=== PATIENT | male | born 1940 ===

== ENCOUNTER 2021-03-05 10:17 | Inpatient (IN) | payer MEDICARE ==
[2021-03-05 10:50] LABS: #Lymphocytes 0.6 thou/uL (1.20-3.40); #Monocytes 1.3 thou/uL (0.11-0.59); #Neutrophils 16.7 thou/uL (1.40-6.50); %Eosinophils 0.1 % (0.0-10.0); %Lymphocytes 3.2 % (21.0-51.0); %Monocytes 6.7 % (0.0-10.0); %Neutrophils 89.9 % (42.0-75.0); Hemoglobin 11.5 g/dL (14.0-18.0); Mean Corpuscular Hemoglobin 28.1 pg (27.0-31.0); Mean Corpuscular Volume 85.3 fL (78.0-98.0); Mean Platelet Volume 7.9 fL (7.4-10.4); Platelet Count 196 thou/uL (130-400); RBC Distribution Width 14.7 % (11.5-14.5); Red Blood Cell (RBC) Count 4.08 mill/uL (4.70-6.10); White Blood Cell (WBC) Count 18.6 thou/uL (4.8-10.8)
[2021-03-05 10:59] LABS: INR-International Normal Ratio 1.4; Prothrombin Time 17.2 sec (12.0-14.7)
[2021-03-05 11:00] LABS: PTT 42.3 sec (22.9-36.1)
[2021-03-05] MEDS ORDERED: Cefepime 2 GM VIAL ONE (11:05)
[2021-03-05 11:06] LABS: Bilirubin Negative (Negative); Blood, Urine Large (Negative); Glucose, Urine (Dipstick) Negative (Negative); Ketone, Urine Negative (Negative); Leukocyte Trace (Negative); Nitrite Positive (Negative); Protein, Urine (Dipstick) 100 mg/dL (Neg-Trace); Specific Gravity, Urine 1.025 (1.005-1.030); Urobilinogen 0.2 mg/dL (Less than 2); pH, Urine 6.5 (5.0-9.0)
[2021-03-05 11:08] LABS: ALT (SGPT) 33 U/L (8-55); AST (SGOT) 74 U/L (5-34); Alkaline Phosphatase 82 U/L (40-110); Anion Gap 20 mmol/L (10-20); BUN (Urea Nitrogen) 63 mg/dL (8.4-25.7); Bilirubin, Total 0.7 mg/dL (0.2-1.2); CK (CPK) 1956 U/L (30-200); Calc. Creatinine Clearance 0 mL/min (70-130); Carbon Dioxide 16 mmol/L (23-31); Chloride 109 mmol/L (98-107); Glucose 116 mg/dL (83-110); Lipase 7 U/L (8-78); Potassium 4.5 mmol/L (3.5-5.1); Sodium 140 mmol/L (136-145)
[2021-03-05 11:12] LABS: Clarity Cloudy (Clear)
[2021-03-05 11:20] LABS: Bacteria/HPF 1+ HPF (None Seen); Squamous Epithelial 0-3 HPF (0-3)
[2021-03-05 11:30] LABS: CKMB 37.1 ng/mL (0-6.6)
[2021-03-05] MEDS ORDERED: Sodium Chloride 0.9% 1,000 ML IV SCH (11:30)
[2021-03-05 12:00] LABS: SARS-CoV-2 NAA Rapid Test Not Detected (NotDetected)
[2021-03-05] MEDS ORDERED: Vancomycin 1.5 GRAM/300 ML BAG 1.5 GM in Premix Bag 1 BAG IVPB SCH (12:00)
[2021-03-05] MEDS ORDERED: Ondansetron ODT 4 MG TAB PO PRN (12:44)
[2021-03-05] MEDS ORDERED: Calcium Carbonate 500 MG ChewTAB PO PRN (12:44)
[2021-03-05] MEDS ORDERED: Acetaminophen 650 MG Suppository PR PRN (12:44)
[2021-03-05] MEDS ORDERED: Ondansetron PF 4 MG/2 ML Vial IVP PRN (12:44)
[2021-03-05] MEDS ORDERED: Aspirin 300 MG Suppository ONE (13:00)
[2021-03-05] MEDS ORDERED: Cefepime 1 GM in Sodium Chloride 0.9% 100 ML IVPB SCH (13:00)
[2021-03-05] MEDS ORDERED: Vancomycin 1 GM in Premix Bag 1 BAG IVPB SCH (13:00)
[2021-03-05] MEDS ORDERED: Sodium Bicarbonate 50 MEQ in Dextrose 5 %-0.45 % NaCl 1,000 ML IV SCH (13:00)
[2021-03-05 13:06] LABS: Magnesium 2.8 mg/dL (1.6-2.6); Phosphorus 5.7 mg/dL (2.3-4.7)
[2021-03-05 13:54] LABS: Actual Bicarbonate (HCO3a) 13.3 mEq/L (22-28); Analyzer IN Cardio ER; Base Excess (BEa) -10.5 mEq/L (-2.0 to +3.0); Calcium, Ionized (arterial) 1.08 mmol/L (1.12-1.30); Carboxyhemoglobin (COHb) 0.3 gm% (0.0-3.0); Hemoglobin (Hb) 9.8 g/dL (14.0-18.0); Potassium - ABG Lab 4.04 mmol/L (3.70-5.30); pH, Arterial 7.37 (7.35-7.45)
[2021-03-05 13:55] LABS: Troponin I 0.196 ng/mL (< 0.028)
[2021-03-05 13:56] LABS: CO2 Tension 23.7 mmHg (35.0-45.0)
[2021-03-05 13:57] LABS: ALV-art Gradient 69.015 mmHg (0-20); Puncture Site RRA
[2021-03-05] MEDS ORDERED: Hydrocortisone Sod Succ/PF 100 mg/2 ml Vial IVP SCH (15:00)
[2021-03-05] MEDS: Albumin 25% 25 GM/100 ML BOT IVPB SCH ×2 (15:28→20:34)
[2021-03-05] MEDS: MULTIVITAMINS IV SCH (17:59)
[2021-03-05] MEDS: [UNRECOGNIZED DRUG - OTHER] IV SCH (17:59)
[2021-03-05] MEDS: SODIUM BICARBONATE IV SCH (17:59)
[2021-03-05 20:33] LABS: Anion Gap 17 mmol/L (10-20); BUN (Urea Nitrogen) 63 mg/dL (8.4-25.7); Calc. Creatinine Clearance 24 mL/min (70-130); Calcium 8.2 mg/dL (7.8-10.44); Carbon Dioxide 15 mmol/L (23-31); Chloride 111 mmol/L (98-107); Glucose 150 mg/dL (83-110); Sodium 139 mmol/L (136-145)
[2021-03-05] MEDS: Heparin 5,000 UNITS/ML VIAL SC SCH (20:34)
[2021-03-05] MEDS: Folic Acid 1 MG TAB PO SCH (20:35)
[2021-03-05] MEDS: Senokot S 8.6-50 MG TAB PO SCH (20:35)
[2021-03-05] MEDS ORDERED: Famotidine 20 MG TAB PO SCH (21:00)
[2021-03-05] MEDS ORDERED: Famotidine/PF 20 mg/2ml Vial SLOW IVP SCH (21:00)
[2021-03-05] MEDS ORDERED: Enoxaparin Sodium 40 MG/0.4 ML SYRINGE SC SCH (21:00)
[2021-03-05] MEDS ORDERED: Cyanocobalamin 1000 MCG/ML VIAL IM SCH (21:00)
[2021-03-06] MEDS: MULTIVITAMINS IV SCH (00:46)
[2021-03-06] MEDS: [UNRECOGNIZED DRUG - OTHER] IV SCH (00:46)
[2021-03-06] MEDS: SODIUM BICARBONATE IV SCH (00:46)
[2021-03-06] MEDS: Sodium Bicarbonate 50 MEQ in Dextrose 5 %-0.45 % NaCl 1,000 ML IV SCH ×2 (00:51→11:46)
[2021-03-06] MEDS: Albumin 25% 25 GM/100 ML BOT IVPB SCH ×3 (02:10→15:58)
[2021-03-06 04:04] LABS: #Lymphocytes 0.4 thou/uL (1.20-3.40); #Monocytes 0.4 thou/uL (0.11-0.59); %Eosinophils 0.1 % (0.0-10.0); %Lymphocytes 2.9 % (21.0-51.0); %Monocytes 3.4 % (0.0-10.0); %Neutrophils 93.6 % (42.0-75.0); Hemoglobin 8.7 g/dL (14.0-18.0); Mean Corpuscular HGB CONC 30.9 g/dL (32.0-36.0); Mean Corpuscular Hemoglobin 26.6 pg (27.0-31.0); Mean Corpuscular Volume 85.9 fL (78.0-98.0); Mean Platelet Volume 8.1 fL (7.4-10.4); Platelet Count 133 thou/uL (130-400); RBC Distribution Width 14.5 % (11.5-14.5); Red Blood Cell (RBC) Count 3.26 mill/uL (4.70-6.10); White Blood Cell (WBC) Count 12.8 thou/uL (4.8-10.8)
[2021-03-06 04:43] LABS: ALT (SGPT) 25 U/L (8-55); AST (SGOT) 50 U/L (5-34); Albumin 3.6 g/dL (3.4-4.8); Alkaline Phosphatase 67 U/L (40-110); Anion Gap 15 mmol/L (10-20); BUN (Urea Nitrogen) 52 mg/dL (8.4-25.7); Bilirubin, Total 0.6 mg/dL (0.2-1.2); CK (CPK) 1115 U/L (30-200); Calc. Creatinine Clearance 30 mL/min (70-130); Calcium 8.4 mg/dL (7.8-10.44); Carbon Dioxide 17 mmol/L (23-31); Chloride 112 mmol/L (98-107); Globulin 2.5 g/dL (2.4-3.5); Glucose 167 mg/dL (83-110); Magnesium 2.6 mg/dL (1.6-2.6); Phosphorus 3.5 mg/dL (2.3-4.7); Potassium 3.5 mmol/L (3.5-5.1); Protein, Total 6.1 g/dL (5.8-8.1); Sodium 140 mmol/L (136-145)
[2021-03-06] MEDS ORDERED: DEXTROSE IV SCH ×2 (08:30→12:24)
[2021-03-06] MEDS ORDERED: SODIUM BICARBONATE IV SCH ×2 (08:30→12:24)
[2021-03-06] MEDS ORDERED: WATER IV SCH ×2 (08:30→12:24)
[2021-03-06] MEDS ORDERED: MULTIVITAMINS IV SCH ×2 (08:30→12:24)
[2021-03-06] MEDS: Potassium Chloride 20 MEQ in Premix Bag 1 BAG IVPB SCH ×2 (08:54→11:51)
[2021-03-06] MEDS: Aspirin 300 MG Suppository PR SCH (08:54)
[2021-03-06] MEDS: Heparin 5,000 UNITS/ML VIAL SC SCH ×2 (08:54→21:11)
[2021-03-06] MEDS: Folic Acid 1 MG TAB PO SCH ×2 (08:55→20:55)
[2021-03-06] MEDS: Aspirin 325 mg Enteric Coated Tablet PO SCH (08:55)
[2021-03-06] MEDS: Cyanocobalamin (Vitamin B-12) 1,000 MCG TAB PO SCH (08:55)
[2021-03-06] MEDS: Senokot S 8.6-50 MG TAB PO SCH ×2 (08:56→20:55)
[2021-03-06] MEDS ORDERED: Multivitamins, Adult 10 ML in Sodium Chloride 0.9% 500 ML IV SCH (09:00)
[2021-03-06] MEDS ORDERED: VANCOMYCIN 1.25 GM/250 ML BAG 1.25 GM in Premix Bag 1 BAG IVPB SCH (13:00)
[2021-03-06] MEDS ORDERED: VANCOMYCIN 1.25 GM/250 ML BAG 1 GM in Premix Bag 1 BAG IVPB SCH (13:00)
[2021-03-06] MEDS ORDERED: Vancomycin 1 GM in Premix Bag 1 BAG IVPB SCH (13:00)
[2021-03-06] MEDS ORDERED: Sodium Bicarbonate 150 MEQ in Dextrose 5% in Water 1,000 ML IV SCH (13:15)
[2021-03-06] MEDS: Cefepime 1 GM in Sodium Chloride 0.9% 100 ML IVPB SCH (13:41)
[2021-03-06 18:09] LABS: Anion Gap 13 mmol/L (10-20); BUN (Urea Nitrogen) 41 mg/dL (8.4-25.7); Calc. Creatinine Clearance 43 mL/min (70-130); Calcium 8.6 mg/dL (7.8-10.44); Carbon Dioxide 20 mmol/L (23-31); Chloride 112 mmol/L (98-107); Glucose 114 mg/dL (83-110); Potassium 3.9 mmol/L (3.5-5.1); Sodium 141 mmol/L (136-145)
[2021-03-06] MEDS ORDERED: Sodium Bicarbonate 75 MEQ in Dextrose 5% in Water 500 ML IV SCH ×2 (20:00→20:14)
[2021-03-06] MEDS ORDERED: D5W-AA 4.25% with LYTES 1,000 ML BAG IV SCH (20:30)
[2021-03-06] MEDS: Phytonadione 5 MG TAB PO SCH (20:55)
[2021-03-06] MEDS ORDERED: D5W-AA 4.25% with LYTES 1,000 ML IV SCH (21:00)
[2021-03-06] MEDS: Multivitamins, Adult 10 ML in Sodium Chloride 0.9% 500 ML IV SCH (21:10)
[2021-03-07] MEDS: Cefepime 1 GM in Sodium Chloride 0.9% 100 ML IVPB SCH (00:25)
[2021-03-07 05:22] LABS: ALT (SGPT) 23 U/L (8-55); AST (SGOT) 38 U/L (5-34); Albumin 3.1 g/dL (3.4-4.8); Alkaline Phosphatase 52 U/L (40-110); Anion Gap 11 mmol/L (10-20); BUN (Urea Nitrogen) 38 mg/dL (8.4-25.7); Bilirubin, Total 0.6 mg/dL (0.2-1.2); CK (CPK) 491 U/L (30-200); Calc. Creatinine Clearance 53 mL/min (70-130); Calcium 8.6 mg/dL (7.8-10.44); Carbon Dioxide 24 mmol/L (23-31); Chloride 111 mmol/L (98-107); Globulin 2.5 g/dL (2.4-3.5); Glucose 112 mg/dL (83-110); Magnesium 2.4 mg/dL (1.6-2.6); Potassium 3.9 mmol/L (3.5-5.1); Protein, Total 5.6 g/dL (5.8-8.1); Sodium 142 mmol/L (136-145)
[2021-03-07 05:23] LABS: Mean Corpuscular HGB CONC 31.8 g/dL (32.0-36.0); Mean Corpuscular Hemoglobin 27.3 pg (27.0-31.0); Mean Corpuscular Volume 85.8 fL (78.0-98.0); Mean Platelet Volume 8.6 fL (7.4-10.4); Platelet Count 122 thou/uL (130-400); RBC Distribution Width 14.7 % (11.5-14.5); Red Blood Cell (RBC) Count 3.31 mill/uL (4.70-6.10); White Blood Cell (WBC) Count 9.7 thou/uL (4.8-10.8)
[2021-03-07 06:29] LABS: Band 11 % (5-11); Eosinophils 1 % (0-10); Lymphocytes 17 % (21-51); MDiff Complete? YES; Monocytes 3 % (0-10); Neutrophil 68 % (42-75)
[2021-03-07] MEDS ORDERED: Electrolyte Replacement Protocol 1 EACH FS SCH (07:00)
[2021-03-07] MEDS ORDERED: Potassium Phosphate 15 MMOL in Sodium Chloride 0.9% 250 ML 250 ML IVPB SCH (07:00)
[2021-03-07] MEDS ORDERED: Potassium Phosphate 15 MMOL in Sodium Chloride 0.9% 100 ML IVPB SCH (07:15)
[2021-03-07] MEDS: Senokot S 8.6-50 MG TAB PO SCH ×3 (09:52→21:21)
[2021-03-07] MEDS: Aspirin 325 mg Enteric Coated Tablet PO SCH (09:53)
[2021-03-07] MEDS: Folic Acid 1 MG TAB PO SCH ×2 (09:53→21:13)
[2021-03-07] MEDS: Aspirin 300 MG Suppository PR SCH (09:53)
[2021-03-07] MEDS: Heparin 5,000 UNITS/ML VIAL SC SCH ×2 (09:54→22:54)
[2021-03-07] MEDS: Cyanocobalamin (Vitamin B-12) 1,000 MCG TAB PO SCH (09:54)
[2021-03-07] MEDS: Cefepime 2 GM in Sodium Chloride 0.9% 100 ML IVPB SCH (18:25)
[2021-03-07] MEDS: Multivitamins, Adult 10 ML in Sodium Chloride 0.9% 500 ML IV SCH (21:15)
[2021-03-07] MEDS: Phytonadione 5 MG TAB PO SCH (21:21)
[2021-03-08] MEDS: Cefepime 2 GM in Sodium Chloride 0.9% 100 ML IVPB SCH ×4 (00:26→23:33)
[2021-03-08 05:25] LABS: Hemoglobin 9.7 g/dL (14.0-18.0); Mean Corpuscular HGB CONC 32.6 g/dL (32.0-36.0); Mean Corpuscular Hemoglobin 27.6 pg (27.0-31.0); Mean Corpuscular Volume 84.6 fL (78.0-98.0); Mean Platelet Volume 8.2 fL (7.4-10.4); Platelet Count 112 thou/uL (130-400); RBC Distribution Width 14.4 % (11.5-14.5); Red Blood Cell (RBC) Count 3.51 mill/uL (4.70-6.10); White Blood Cell (WBC) Count 9.4 thou/uL (4.8-10.8)
[2021-03-08 05:43] LABS: ALT (SGPT) 66 U/L (8-55); AST (SGOT) 99 U/L (5-34); Albumin 2.8 g/dL (3.4-4.8); Alkaline Phosphatase 73 U/L (40-110); Anion Gap 9 mmol/L (10-20); BUN (Urea Nitrogen) 30 mg/dL (8.4-25.7); BUN/Creatinine Ratio 32.26; Bilirubin, Total 0.8 mg/dL (0.2-1.2); Calc. Creatinine Clearance 62 mL/min (70-130); Calcium 8.3 mg/dL (7.8-10.44); Carbon Dioxide 25 mmol/L (23-31); Chloride 107 mmol/L (98-107); Globulin 2.3 g/dL (2.4-3.5); Glucose 99 mg/dL (83-110); Iron 8 ug/dL (65-175); Iron Binding Capacity, Total 91 mcg/dL (261-462); Magnesium 2.2 mg/dL (1.6-2.6); Potassium 3.8 mmol/L (3.5-5.1); Protein, Total 5.1 g/dL (5.8-8.1); Sodium 137 mmol/L (136-145)
[2021-03-08 05:44] LABS: Iron 8 ug/dL (65-175); Iron Binding Capacity, Total 90 mcg/dL (261-462)
[2021-03-08 06:07] LABS: Band 4 % (5-11); Lymphocytes 8 % (21-51); MDiff Complete? YES; Monocytes 5 % (0-10); Myelocyte 1 % (0-0); Neutrophil 82 % (42-75); Platelet Morphology Comment Appears Decreased
[2021-03-08 06:12] LABS: Phosphorus 1.9 mg/dL (2.3-4.7)
[2021-03-08] MEDS ORDERED: PHOS-NAK 1 PKT PACK PO SCH (07:00)
[2021-03-08] MEDS: Cyanocobalamin (Vitamin B-12) 1,000 MCG TAB PO SCH (08:48)
[2021-03-08] MEDS: Folic Acid 1 MG TAB PO SCH ×2 (08:48→21:06)
[2021-03-08] MEDS: Aspirin 325 mg Enteric Coated Tablet PO SCH (08:48)
[2021-03-08] MEDS: Senokot S 8.6-50 MG TAB PO SCH ×2 (08:48→21:42)
[2021-03-08] MEDS: PHOS-NAK 1 PKT PACK PO SCH ×2 (08:49→15:44)
[2021-03-08] MEDS: Heparin 5,000 UNITS/ML VIAL SC SCH ×2 (08:51→21:06)
[2021-03-08] MEDS: Aspirin 300 MG Suppository PR SCH (15:39)
[2021-03-08] MEDS ORDERED: Doxazosin Mesylate 4 MG TAB PO SCH (17:45)
[2021-03-08] MEDS: Acetaminophen 325 MG TAB PO PRN (18:42)
[2021-03-08] MEDS: Multivitamins, Adult 10 ML in Sodium Chloride 0.9% 500 ML IV SCH (21:05)
[2021-03-09] MEDS: Ferrous Sulfate 325 MG TAB PO SCH (09:23)
[2021-03-09] MEDS: Folic Acid 1 MG TAB PO SCH ×2 (09:24→20:16)
[2021-03-09] MEDS: Cyanocobalamin (Vitamin B-12) 1,000 MCG TAB PO SCH (09:24)
[2021-03-09] MEDS: Aspirin 325 mg Enteric Coated Tablet PO SCH (09:24)
[2021-03-09] MEDS: Doxazosin Mesylate 4 MG TAB PO SCH (09:25)
[2021-03-09] MEDS: Aspirin 300 MG Suppository PR SCH (09:26)
[2021-03-09] MEDS: Flecainide 50 MG TAB PO SCH ×2 (09:26→20:16)
[2021-03-09] MEDS: Senokot S 8.6-50 MG TAB PO SCH ×2 (09:27→22:34)
[2021-03-09] MEDS: Heparin 5,000 UNITS/ML VIAL SC SCH ×2 (10:54→20:18)
[2021-03-09] MEDS: Cefepime 2 GM in Sodium Chloride 0.9% 100 ML IVPB SCH ×2 (13:31→23:58)
[2021-03-09] MEDS: Acetaminophen 325 MG TAB PO PRN (20:15)
[2021-03-09] MEDS: Multivitamins, Adult 10 ML in Sodium Chloride 0.9% 500 ML IV SCH (20:16)
[2021-03-10] MEDS: Heparin 5,000 UNITS/ML VIAL SC SCH ×2 (09:37→10:10)
[2021-03-10] MEDS: Senokot S 8.6-50 MG TAB PO SCH ×2 (10:02→21:00)
[2021-03-10] MEDS: Doxazosin Mesylate 4 MG TAB PO SCH (10:03)
[2021-03-10] MEDS: Ferrous Sulfate 325 MG TAB PO SCH (10:03)
[2021-03-10] MEDS: Flecainide 50 MG TAB PO SCH ×2 (10:04→21:00)
[2021-03-10] MEDS: Folic Acid 1 MG TAB PO SCH ×2 (10:04→21:00)
[2021-03-10] MEDS: Cyanocobalamin (Vitamin B-12) 1,000 MCG TAB PO SCH (10:04)
[2021-03-10 10:31] VITALS: BMI 19.8
[2021-03-10] MEDS: Cefepime 2 GM in Sodium Chloride 0.9% 100 ML IVPB SCH (13:32)
[2021-03-10] MEDS: Ciprofloxacin 500 MG TAB PO SCH (21:00)
[2021-03-10] MEDS: Multivitamins, Adult 10 ML in Sodium Chloride 0.9% 500 ML IV SCH (21:11)
[2021-03-11] MEDS: Ciprofloxacin 500 MG TAB PO SCH ×2 (04:55→19:24)
[2021-03-11] MEDS: Flecainide 50 MG TAB PO SCH ×3 (04:56→19:24)
[2021-03-11] MEDS: Folic Acid 1 MG TAB PO SCH ×3 (04:56→19:24)
[2021-03-11] MEDS: Doxazosin Mesylate 4 MG TAB PO SCH (10:50)
[2021-03-11] MEDS: Ferrous Sulfate 325 MG TAB PO SCH (10:50)
[2021-03-11] MEDS: Cyanocobalamin (Vitamin B-12) 1,000 MCG TAB PO SCH (10:50)
[2021-03-11] MEDS: Senokot S 8.6-50 MG TAB PO SCH ×2 (10:50→19:23)
[2021-03-11] MEDS: Enoxaparin Sodium 40 MG/0.4 ML SYRINGE SC SCH (10:51)
[2021-03-11] MEDS: Multivitamins, Adult 10 ML in Sodium Chloride 0.9% 500 ML IV SCH (20:05)
[2021-03-12] MEDS: Ciprofloxacin 500 MG TAB PO SCH ×2 (05:34→20:07)
[2021-03-12] MEDS: Enoxaparin Sodium 40 MG/0.4 ML SYRINGE SC SCH (10:08)
[2021-03-12] MEDS: Cyanocobalamin (Vitamin B-12) 1,000 MCG TAB PO SCH (10:09)
[2021-03-12] MEDS: Folic Acid 1 MG TAB PO SCH ×2 (10:09→20:07)
[2021-03-12] MEDS: Ferrous Sulfate 325 MG TAB PO SCH (10:09)
[2021-03-12] MEDS: Flecainide 50 MG TAB PO SCH ×2 (10:09→20:07)
[2021-03-12] MEDS: Senokot S 8.6-50 MG TAB PO SCH ×2 (10:09→20:07)
[2021-03-12] MEDS: Doxazosin Mesylate 4 MG TAB PO SCH (10:10)
[2021-03-12 17:27] LABS: SARS-CoV-2 PCR by NAA Not Detected (NotDetected)
[2021-03-13] MEDS: Ciprofloxacin 500 MG TAB PO SCH ×2 (05:08→19:59)
[2021-03-13] MEDS: Enoxaparin Sodium 40 MG/0.4 ML SYRINGE SC SCH (08:39)
[2021-03-13] MEDS: Ferrous Sulfate 325 MG TAB PO SCH (08:39)
[2021-03-13] MEDS: Cyanocobalamin (Vitamin B-12) 1,000 MCG TAB PO SCH (08:39)
[2021-03-13] MEDS: Flecainide 50 MG TAB PO SCH ×2 (08:39→19:59)
[2021-03-13] MEDS: Folic Acid 1 MG TAB PO SCH ×2 (08:39→19:59)
[2021-03-13] MEDS: Senokot S 8.6-50 MG TAB PO SCH ×2 (08:39→19:59)
[2021-03-13] MEDS: Doxazosin Mesylate 4 MG TAB PO SCH (08:41)
[2021-03-14] MEDS: Ciprofloxacin 500 MG TAB PO SCH ×2 (05:26→19:40)
[2021-03-14] MEDS: Cyanocobalamin (Vitamin B-12) 1,000 MCG TAB PO SCH (09:12)
[2021-03-14] MEDS: Doxazosin Mesylate 4 MG TAB PO SCH (09:12)
[2021-03-14] MEDS: Flecainide 50 MG TAB PO SCH ×2 (09:13→19:41)
[2021-03-14] MEDS: Senokot S 8.6-50 MG TAB PO SCH ×2 (09:13→19:40)
[2021-03-14] MEDS: Folic Acid 1 MG TAB PO SCH ×2 (09:13→19:41)
[2021-03-14] MEDS: Enoxaparin Sodium 40 MG/0.4 ML SYRINGE SC SCH (09:13)
[2021-03-14] MEDS: Ferrous Sulfate 325 MG TAB PO SCH (09:13)
[2021-03-14] MEDS ORDERED: Lorazepam 0.5 MG TAB PO PRN (16:52)
[2021-03-15] MEDS: Ciprofloxacin 500 MG TAB PO SCH ×2 (06:07→22:01)
[2021-03-15] MEDS: Ferrous Sulfate 325 MG TAB PO SCH (08:36)
[2021-03-15] MEDS: Flecainide 50 MG TAB PO SCH ×2 (08:37→22:01)
[2021-03-15] MEDS: Senokot S 8.6-50 MG TAB PO SCH ×2 (08:37→22:02)
[2021-03-15] MEDS: Cyanocobalamin (Vitamin B-12) 1,000 MCG TAB PO SCH (08:38)
[2021-03-15] MEDS: Folic Acid 1 MG TAB PO SCH ×2 (08:40→22:01)
[2021-03-15] MEDS: Enoxaparin Sodium 40 MG/0.4 ML SYRINGE SC SCH (08:40)
[2021-03-15] MEDS: Doxazosin Mesylate 4 MG TAB PO SCH (08:41)
[2021-03-16] MEDS: Ciprofloxacin 500 MG TAB PO SCH ×2 (05:44→20:16)
[2021-03-16] MEDS: Senokot S 8.6-50 MG TAB PO SCH ×2 (09:16→20:17)
[2021-03-16] MEDS: Folic Acid 1 MG TAB PO SCH ×2 (09:17→20:17)
[2021-03-16] MEDS: Enoxaparin Sodium 40 MG/0.4 ML SYRINGE SC SCH (09:17)
[2021-03-16] MEDS: Ferrous Sulfate 325 MG TAB PO SCH (09:17)
[2021-03-16] MEDS: Cyanocobalamin (Vitamin B-12) 1,000 MCG TAB PO SCH (09:18)
[2021-03-16] MEDS: Doxazosin Mesylate 4 MG TAB PO SCH (09:18)
[2021-03-16] MEDS: Flecainide 50 MG TAB PO SCH ×2 (09:18→20:17)
[2021-03-17] MEDS: Ciprofloxacin 500 MG TAB PO SCH ×2 (05:36→20:26)
[2021-03-17] MEDS: Enoxaparin Sodium 40 MG/0.4 ML SYRINGE SC SCH (08:31)
[2021-03-17] MEDS: Ferrous Sulfate 325 MG TAB PO SCH (08:32)
[2021-03-17] MEDS: Folic Acid 1 MG TAB PO SCH ×2 (08:32→20:27)
[2021-03-17] MEDS: Cyanocobalamin (Vitamin B-12) 1,000 MCG TAB PO SCH (08:33)
[2021-03-17] MEDS: Senokot S 8.6-50 MG TAB PO SCH ×2 (08:33→20:26)
[2021-03-17] MEDS: Flecainide 50 MG TAB PO SCH ×2 (08:33→20:26)
[2021-03-17] MEDS: Doxazosin Mesylate 4 MG TAB PO SCH (08:38)
[2021-03-18] MEDS: Ciprofloxacin 500 MG TAB PO SCH ×2 (06:00→19:54)
[2021-03-18] MEDS: Ferrous Sulfate 325 MG TAB PO SCH (08:39)
[2021-03-18] MEDS: Doxazosin Mesylate 4 MG TAB PO SCH (08:39)
[2021-03-18] MEDS: Flecainide 50 MG TAB PO SCH ×2 (08:40→19:54)
[2021-03-18] MEDS: Enoxaparin Sodium 40 MG/0.4 ML SYRINGE SC SCH (08:40)
[2021-03-18] MEDS: Senokot S 8.6-50 MG TAB PO SCH ×2 (08:40→19:58)
[2021-03-18] MEDS: Folic Acid 1 MG TAB PO SCH ×2 (08:40→19:54)
[2021-03-18] MEDS: Cyanocobalamin (Vitamin B-12) 1,000 MCG TAB PO SCH (08:40)
[2021-03-19] MEDS: Ciprofloxacin 500 MG TAB PO SCH ×2 (06:27→20:48)
[2021-03-19 07:40] LABS: #Eosinphils 0.1 thou/uL (0.0-0.7); #Lymphocytes 0.9 thou/uL (1.20-3.40); #Monocytes 0.5 thou/uL (0.11-0.59); #Neutrophils 5.4 thou/uL (1.40-6.50); %Basophils 0.2 % (0.0-1.0); %Eosinophils 0.9 % (0.0-10.0); %Lymphocytes 13.4 % (21.0-51.0); %Monocytes 7.7 % (0.0-10.0); %Neutrophils 77.8 % (42.0-75.0); Mean Corpuscular HGB CONC 32.2 g/dL (32.0-36.0); Mean Corpuscular Volume 83.8 fL (78.0-98.0); Mean Platelet Volume 8.8 fL (7.4-10.4); Platelet Count 94 thou/uL (130-400); RBC Distribution Width 14.5 % (11.5-14.5); Red Blood Cell (RBC) Count 3.35 mill/uL (4.70-6.10); White Blood Cell (WBC) Count 6.9 thou/uL (4.8-10.8)
[2021-03-19 08:02] LABS: Anion Gap 10 mmol/L (10-20); BUN (Urea Nitrogen) 17 mg/dL (8.4-25.7); Calc. Creatinine Clearance 64 mL/min (70-130); Calcium 7.9 mg/dL (7.8-10.44); Carbon Dioxide 21 mmol/L (23-31); Chloride 101 mmol/L (98-107); Glucose 80 mg/dL (83-110); Magnesium 1.9 mg/dL (1.6-2.6); Phosphorus 2.7 mg/dL (2.3-4.7); Potassium 4.7 mmol/L (3.5-5.1); Sodium 127 mmol/L (136-145)
[2021-03-19] MEDS ORDERED: Sodium Chloride 0.9% 1,000 ML IV SCH (08:15)
[2021-03-19] MEDS ORDERED: Magnesium 2 GM/50 ML 2 GM in Premix Bag 1 BAG IVPB SCH (08:30)
[2021-03-19] MEDS ORDERED: Electrolyte Replacement Protocol FS PRN (08:30)
[2021-03-19] MEDS: Enoxaparin Sodium 40 MG/0.4 ML SYRINGE SC SCH (08:59)
[2021-03-19] MEDS: Doxazosin Mesylate 4 MG TAB PO SCH (09:01)
[2021-03-19] MEDS: Senokot S 8.6-50 MG TAB PO SCH ×2 (09:01→20:51)
[2021-03-19] MEDS: Cyanocobalamin (Vitamin B-12) 1,000 MCG TAB PO SCH (09:02)
[2021-03-19] MEDS: Saccharomyces boulardii 250 MG CAP PO SCH (09:03)
[2021-03-19] MEDS: Folic Acid 1 MG TAB PO SCH ×2 (09:03→20:48)
[2021-03-19] MEDS: Flecainide 50 MG TAB PO SCH ×2 (09:03→20:48)
[2021-03-19] MEDS: Ferrous Sulfate 325 MG TAB PO SCH (09:03)
[2021-03-19 18:09] LABS: Anion Gap 12 mmol/L (10-20); BUN (Urea Nitrogen) 16 mg/dL (8.4-25.7); Calc. Creatinine Clearance 63 mL/min (70-130); Calcium 7.6 mg/dL (7.8-10.44); Carbon Dioxide 17 mmol/L (23-31); Chloride 100 mmol/L (98-107); Glucose 98 mg/dL (83-110); Potassium 4.5 mmol/L (3.5-5.1); Sodium 124 mmol/L (136-145)
[2021-03-19] MEDS ORDERED: TOLVAPTAN 30 MG TAB PO SCH (19:15)
[2021-03-20] MEDS: Ciprofloxacin 500 MG TAB PO SCH ×2 (05:12→20:52)
[2021-03-20 07:10] LABS: Anion Gap 14 mmol/L (10-20); BUN (Urea Nitrogen) 17 mg/dL (8.4-25.7); Calc. Creatinine Clearance 57 mL/min (70-130); Calcium 7.5 mg/dL (7.8-10.44); Carbon Dioxide 15 mmol/L (23-31); Chloride 108 mmol/L (98-107); Glucose 94 mg/dL (83-110); Potassium 5.5 mmol/L (3.5-5.1); Sodium 131 mmol/L (136-145)
[2021-03-20] MEDS: Ferrous Sulfate 325 MG TAB PO SCH (08:15)
[2021-03-20] MEDS: Folic Acid 1 MG TAB PO SCH ×2 (08:15→20:52)
[2021-03-20] MEDS: Senokot S 8.6-50 MG TAB PO SCH ×2 (08:15→20:52)
[2021-03-20] MEDS: Cyanocobalamin (Vitamin B-12) 1,000 MCG TAB PO SCH (08:15)
[2021-03-20] MEDS: Saccharomyces boulardii 250 MG CAP PO SCH (08:16)
[2021-03-20] MEDS: Flecainide 50 MG TAB PO SCH ×2 (08:16→20:52)
[2021-03-20 10:51] LABS: Anion Gap 9 mmol/L (10-20); BUN (Urea Nitrogen) 17 mg/dL (8.4-25.7); Calc. Creatinine Clearance 56 mL/min (70-130); Calcium 7.9 mg/dL (7.8-10.44); Carbon Dioxide 22 mmol/L (23-31); Chloride 103 mmol/L (98-107); Glucose 110 mg/dL (83-110); Potassium 4.2 mmol/L (3.5-5.1); Sodium 130 mmol/L (136-145)
[2021-03-20 12:44] LABS: SARS-CoV-2 PCR by NAA Not Detected (NotDetected)
[2021-03-21] MEDS: Ciprofloxacin 500 MG TAB PO SCH (05:42)
[2021-03-21 08:33] VITALS: BP 121/89; TEMP 98.2
[2021-03-21] MEDS: Saccharomyces boulardii 250 MG CAP PO SCH (08:46)
[2021-03-21] MEDS: Senokot S 8.6-50 MG TAB PO SCH (08:46)
[2021-03-21] MEDS: Cyanocobalamin (Vitamin B-12) 1,000 MCG TAB PO SCH (08:46)
[2021-03-21] MEDS: Ferrous Sulfate 325 MG TAB PO SCH (08:46)
[2021-03-21] MEDS: Flecainide 50 MG TAB PO SCH (08:46)
[2021-03-21] MEDS: Folic Acid 1 MG TAB PO SCH (08:46)
== END 2021-03-21 15:23 | DRG 871 ==
LOC: ERS 10:17 → IMCU/EMU 12:57 → 2NO 03-06 17:28 → T4-A 03-12 21:04
PROVIDERS: ADMIT Internal Medicine; ATTEND Internal Medicine
DX: A41.52 Sepsis due to Pseudomonas (principal); I21.A1 Myocardial infarction type 2; I69.354 Hemiplegia and hemiparesis following cerebral infarction affecting left non-dominant side; N17.9 Acute kidney failure, unspecified; Z66 Do not resuscitate; E87.2 Acidosis; E44.0 Moderate protein-calorie malnutrition; N39.0 Urinary tract infection, site not specified; Z68.1 Body mass index [BMI] 19.9 or less, adult; C64.1 Malignant neoplasm of right kidney, except renal pelvis; I48.21 Permanent atrial fibrillation; E22.2 Syndrome of inappropriate secretion of antidiuretic hormone; Z20.822 Contact with and (suspected) exposure to COVID-19; I10 Essential (primary) hypertension; E86.0 Dehydration; R13.10 Dysphagia, unspecified; T79.6XXA Traumatic ischemia of muscle, initial encounter; R65.20 Severe sepsis without septic shock; D50.9 Iron deficiency anemia, unspecified; B96.5 Pseudomonas (aeruginosa) (mallei) (pseudomallei) as the cause of diseases classified elsewhere; E88.89 Other specified metabolic disorders; N40.1 Benign prostatic hyperplasia with lower urinary tract symptoms; I48.0 Paroxysmal atrial fibrillation; I08.1 Rheumatic disorders of both mitral and tricuspid valves; D52.9 Folate deficiency anemia, unspecified; R33.8 Other retention of urine; W19.XXXA Unspecified fall, initial encounter; T68.XXXA Hypothermia, initial encounter; E78.5 Hyperlipidemia, unspecified; E87.6 Hypokalemia; E83.42 Hypomagnesemia; Z90.89 Acquired absence of other organs
CPT/HCPCS: 0240U; 36415; 36600; 51701; 70450; 71045; 72125; 74176; 80048; 80053; 80069; 80202; 81003; 81015; 82010; 82140; 82533; 82550; 82553; 82607; 82746; 82805; 83540; 83550; 83605; 83690; 83735; 83880; 83930; 83935; 84100; 84300; 84443; 84484; 85025; 85610; 85730; 86140; 87040; 87077; 87086; 87149; 87186; 93005; 93306; 94760; 96365; 96366; 96367; J0692; J1644; J1650; J1720; J3370; J3420; J3475; J3480; J3490; J7030; J7042; J7050; J7070; P9047; Q0162; U0003; U0005